=== PATIENT | female | born 1995 | race Caucasian/White ===

== ENCOUNTER → 2022-07-24 | Outpatient (CLI) | payer BC ==
--- NOTE | 2022-07-24 18:07 | Diagnostic Imaging Report ---
INDICATION: Supervision of normal . Anatomy scan. TECHNIQUE: Multiple real-time grayscale images were obtained over the gravid uterus. COMPARISON: None. FINDINGS: A single live intrauterine gestation is visualized in transverse position. heart tones measure 146 BPM. The placenta is anterior and somewhat low lying measuring 3.0 cm from the internal cervical os. The cervix is closed and measures 4.6 cm. The LEONARD is normal measuring 18.3 cm. The kidneys, bladder, stomach, brain, four-chamber heart, three-vessel cord, cord insertion, and spine are visualized and have a normal sonographic appearance. Views of the adnexa are unremarkable. Biometrical measurements are as follows: Biparietal 4.78 cm, age 20 weeks 4 days. Head circumference 17.41 cm, age 20 weeks 0 days. Abdominal circumference 16.40 cm, age 21 weeks 4 days. Femur length 2.98 cm, age 19 weeks 2 days. Sonographic estimate age: 20 weeks 3 days. Sonographic estimated date of delivery: 12/08/2022. Estimated Weight: 350 gm (+/- 51 gm). LMP percentile: 28%. heart rate: 146 beats per minute. number: 1 of 1. IMPRESSION: 1. Single live intrauterine gestation measuring 20 weeks 3 days with an estimated due date of 12/08/2022. These are within range with the clinical dates. 2. No sonographic abnormalities of the fetus. 3. Somewhat low-lying anterior placenta measuring 3.0 cm from the internal cervical os. Recommend continued attention on follow-up. Dictated by: Dictated on workstation # [id number]
== END ==
LOC: RAD 13:00
PROVIDERS: ATTEND Nurse Practitioner Women's Health
DX: Z34.02 Encounter for supervision of normal first pregnancy, second trimester (principal); Z3A.20 20 weeks gestation of pregnancy
CPT/HCPCS: 76805

== ENCOUNTER 2022-09-14 12:56 | Outpatient (CLI) | payer BC ==
[~2022-09-14] VITALS: Ht 170.2 cm; Wt 84.1 kg
[2022-09-14] MEDS ORDERED: HYDROCORTISONE 100 MG/2 ML (Solu-CORTEF) VIAL IV PRN (13:30)
[2022-09-14] MEDS ORDERED: RT-ALBUTEROL SULF 2.5 MG/3 ML PRE-MIX VIAL IH PRN (13:30)
[2022-09-14] MEDS ORDERED: IRON DEXTRAN 25 MG/NS 6.25 ML TOTAL VOLUME IV ONE ×3 (13:30)
[2022-09-14] MEDS ORDERED: diphenhydrAMINE 50 MG/ML INJ (BENADRYL) IV PRN (13:30)
[2022-09-14] MEDS ORDERED: EPINEPHrine INJECTION 1 MG/ML AMP IM PRN (13:30)
[2022-09-14] MEDS ORDERED: IRON DEXTRAN 1,000 MG/NS 250 ML IVPB IV ONE ×2 (13:45)
[2022-09-14 15:40] VITALS: BP 129/81
== END 2022-09-14 15:40 | disposition home or self-care (01) ==
LOC: SDC 12:56
PROVIDERS: ATTEND Obstetrics & Gynecology
DX: D64.9 Anemia, unspecified (principal)
CPT/HCPCS: 96365

== ENCOUNTER 2022-11-28 19:00 | Inpatient (IN) | payer BC ==
[~2022-11-28] VITALS: Ht 170.2 cm; Wt 90.9 kg
[2022-11-28 19:06] VITALS: BP 136/79
[2022-11-28] MEDS ORDERED: NS IV 1000 ML 1,000 ML ONE (19:29)
[2022-11-28] MEDS ORDERED: TERBUTALINE INJ 1 MG/ML (BRETHINE) AMP SC PRN (19:30)
[2022-11-28] MEDS ORDERED: LACTATED RINGERS 1,000 ML 500 ML IV PRN ×2 (19:30→20:45)
[2022-11-28] MEDS ORDERED: NS IV 1000 ML 1,000 ML IV SCH (19:30)
[2022-11-28] MEDS ORDERED: D5 LR 1,000 ML IV SOLN 1,000 ML IV ONE (20:37)
[2022-11-28 20:45] LABS: BASOPHILS % (AUTO) 0 % (0-10); EOSINOPHILS % (AUTO) 0 % (0-10); HEMATOCRIT 37 % (35-52); HEMOGLOBIN 12.2 g/dL (11.5-16.0); LYMPHOCYTES # (AUTO) 1.8 10^3/uL (1.0-4.0); LYMPHOCYTES % (AUTO) 14 % (12-44); MEAN CORPUSCULAR HEMOGLOBIN 29 pg (25-34); MEAN CORPUSCULAR HGB CONC 33 g/dL (32-36); MEAN CORPUSCULAR VOLUME 87 fL (80-99); MEAN PLATELET VOLUME 11.6 fL (9.0-12.2); MONOCYTES # (AUTO) 1.2 10^3/uL (0.0-1.0); MONOCYTES % (AUTO) 9 % (0-12); NEUTROPHILS # (AUTO) 10.1 10^3/uL (1.8-7.8); NEUTROPHILS % (AUTO) 77 % (42-75); PLATELET COUNT 234 10^3/uL (130-400); WHITE BLOOD COUNT 13.2 10^3/uL (4.3-11.0)
[2022-11-28] MEDS ORDERED: HYDROmorphone INJECTION 2 MG/ML VIAL IVP ONE (20:45)
[2022-11-28] MEDS: D5 LR 1,000 ML IV SOLN 1,000 ML IV SCH (20:51)
[2022-11-28 20:56] VITALS: BP 129/83
[2022-11-28 21:40] VITALS: BP 139/87
[2022-11-28 22:00] VITALS: BP 135/89
[2022-11-28] MEDS: CATHETER FLUSH 10 ML SYR IV SCH (22:00)
[2022-11-28 23:00] VITALS: BP 122/80
[2022-11-29] VITALS (59 sets, daily range): BP systolic 111–172; BP diastolic 65–100
[2022-11-29] MEDS ORDERED: BETAMETHASONE Acetate/Na Phosphate 6 MG/ML INJ ONE (01:36)
[2022-11-29] MEDS: D5 LR 1,000 ML IV SOLN 1,000 ML IV SCH ×2 (04:35→12:24)
[2022-11-29] MEDS: CATHETER FLUSH 10 ML SYR IV SCH ×3 (06:00→21:20)
--- NOTE | 2022-11-29 07:27 | History & Physical-OB/GYN ---
MAURO DUPREE 11/29/22 0727: History of Present Illness History of Present Illness Reason for visit/HPI induction of labor Date of Admission Nov 28, 2022 at 19:03 Time Seen by a Provider: 19:03 I consulted on this patient on 11/29/22 07:22 Attending Physician Admitting Physician: Yudith Dobson DO Admitting Physician Admitting Physician: Yudith Dobson DO Attending Physician: Yudith Dobson DO Consult Allergies and Home Medications Allergies Coded Allergies: No Known Drug Allergies (Unverified , 09/14/22) Patient Home Medication List No Active Prescriptions or Reported Meds Past Udjnpbv-Ffdans-Qzcypy Hx Patient Social History Smoking Status: Never a Smoker Alcohol Use?: No Pt feels they are or have been: No Reproductive System Expected Date of Delivery: Dec 06, 2022 Physical Exam Physical Exam Vital Signs Vital Signs Date Time Temp Pulse Resp B/P (MAP) Pulse Ox O2 Delivery O2 Flow Rate FiO2 11/29/22 06:00 75 18 127/80 (96) Room Air 11/29/22 05:00 76 18 138/93 (108) Room Air 11/29/22 04:00 36.0 73 18 130/82 (98) Room Air 11/29/22 03:00 75 18 133/82 (99) Room Air 11/29/22 02:00 36.0 72 18 132/80 (97) Room Air 11/29/22 01:00 85 18 146/95 (112) Room Air 11/29/22 00:00 78 18 130/79 (96) Room Air 11/28/22 23:00 83 18 122/80 (94) Room Air 11/28/22 22:00 36.0 87 18 135/89 (104) Room Air 11/28/22 21:40 87 18 139/87 (104) Room Air 11/28/22 20:56 92 18 129/83 (98) Room Air 11/28/22 19:06 37.0 99 18 136/79 (98) 97 Room Air 11/28/22 19:06 37.0 99 18 97 Room Air I & O 11/29/22 07:00 Intake Total 1500 ml Balance 1500 ml Capillary Refill : Less Than 3 Seconds Labs Laboratory Tests 11/28/22 19:35: White Blood Count 13.2H, Red Blood Count 4.18, Hemoglobin 12.2, Hematocrit 37, Mean Corpuscular Volume 87, Mean Corpuscular Hemoglobin 29, Mean Corpuscular Hemoglobin Concent 33, Red Cell Distribution Width 17.1H, Platelet Count 234, Mean Platelet Volume 11.6, Immature Granulocyte % (Auto) 1, Neutrophils (%) (Auto) 77H, Lymphocytes (%) (Auto) 14, Monocytes (%) (Auto) 9, Eosinophils (%) (Auto) 0, Basophils (%) (Auto) 0, Neutrophils # (Auto) 10.1H, Lymphocytes # (Auto) 1.8, Monocytes # (Auto) 1.2H, Eosinophils # (Auto) 0.0, Basophils # (Auto) 0.0, Immature Granulocyte # (Auto) 0.1, Syphilis Total Antibody Negative GERMÁN PALOMINO 11/29/22 0809: History of Present Illness History of Present Illness Reason for visit/HPI Induction of Labor Date of Admission 11/29/2022 Date Seen by a Provider: Nov 29, 2022 Time Seen by a Provider: 07:45 Attending Physician Yudith Dobson DO Admitting Physician Yudith Dobson DO Allergies and Home Medications Allergies Coded Allergies: No Known Drug Allergies (Unverified , 09/14/22) Patient Home Medication List Home Medication List Reviewed: Yes No Active Prescriptions or Reported Meds Past Umuriyi-Tfascy-Jmpojl Hx Reproductive System : Yes Physical Exam Physical Exam General Appearance: No Apparent Distress Respiratory: No Accessory Muscle Use, No Respiratory Distress Labia: WNL Cervix: Other (1/80/0) Cervix OS: open Uterus: Enlarged Ovaries: WNL Assessment/Plan Assessment and Plan Term , induce labor Problems: (1) 38 weeks gestation of (2) Elective induction of labor planned Admission Diagnosis Term , admit for induction of labor Admission Status: Inpatient Order (span 2 midnights) Reason for Inpatient Admission: Pt in labor, admit for and observation post- Diagnosis/Problems Diagnosis/Problems (1) 38 weeks gestation of (2) Elective induction of labor planned YUDITH DOBSON DO 11/29/222117: Assessment/Plan Admission Diagnosis Admission Status: Inpatient Order (span 2 midnights) Reason for Inpatient Admission: DOCUMENT IN ERROR MAURO DUPREE Nov 29, 2022 07:27 GERMÁN PALOMINO Nov 29, 2022 08:09 YUDITH DOBSON DO Nov 29, 2022 21:18
[2022-11-29] MEDS ORDERED: OXYTOCIN DRIP PRE-MIX 500 ML IV SCH (08:15)
[2022-11-29] MEDS ORDERED: fentaNYL 2 mcg/ml BUPIVA 0.125 100 ML ONE (08:18)
[2022-11-29] MEDS: fentaNYL 2 mcg/ml BUPIVA 0.125 100 ML EPI SCH ×2 (09:07→17:35)
[2022-11-29] MEDS ORDERED: NALOXONE 0.4 MG/ML 1 ML VIAL IV PRN ×3 (09:15→16:30)
[2022-11-29] MEDS ORDERED: METOCLOPRAMIDE INJ 10 MG/2 ML IV PRN (09:15)
[2022-11-29] MEDS ORDERED: LACTATED RINGERS 1,000 ML 1,000 ML IV SCH (09:15)
[2022-11-29] MEDS ORDERED: ONDANSETRON INJECTION 4 MG/2 ML (SDV) IV PRN (09:15)
[2022-11-29] MEDS ORDERED: diphenhydrAMINE INJ 50 MG/ML VIAL IV PRN (09:15)
[2022-11-29] MEDS ORDERED: LIDOCAINE 2% w/EPI 1:200,000 20 ML VIAL ONE (15:21)
[2022-11-29] MEDS: OXYTOCIN DRIP PRE-MIX 500 ML IV SCH ×2 (15:51→16:20)
[2022-11-29] MEDS ORDERED: METHYLERGONOVINE INJ 0.2 MG/ML AMP ONE (16:00)
[2022-11-29] MEDS ORDERED: NS (IVPB) 50 ML 50 ML ONE (16:15)
[2022-11-29] MEDS ORDERED: TRANEXAMIC ACID INJECTION 1,000 MG in NS (IVPB) 50 ML 50 ML IV ONE (16:17)
[2022-11-29] MEDS ORDERED: Tetanus/Diphtheria/Pertussis (Acell) ADULT Vaccine 0.5 ML IM ONE (16:30)
[2022-11-29] MEDS ORDERED: HYDROcodone/ACETAMINOPHEN 5 MG/325 MG TABLET PO PRN (16:30)
[2022-11-29] MEDS ORDERED: MEASLES, MUMPS, RUBELLA VACCINE (MMR) SQ ONE (16:30)
[2022-11-29] MEDS ORDERED: BENZOCAINE/MENTHOL (DERMOPLAST) 56 ML CAN TP PRN (16:30)
[2022-11-29] MEDS ORDERED: DIBUCAINE 1% OINTMENT 28 GM TUBE TOP PRN (16:30)
--- NOTE | 2022-11-29 16:31 | OB Labor & Delivery Record ---
L&D History Date of Service Date of Service: Nov 29, 2022 History Expected Date of Delivery: Dec 06, 2022 Gestational Age in Weeks: 39 Hx : 1 Hx Para: 0 Complications Events: Routine care Operative Indications (Cesarea: N/A-Vaginal Delivery Intrapartal Events: None L&D Stage1 Stage One Onset of Labor - Date: Nov 29, 2022 Monitors and Tracing Monitor Mode: External Heart Rate: 130 Monitor Accelerations: Uniform Monitor Decelerations: None Station: 0 Cage Cashier Variability: Average (6-10) Short Term Variability: Present Presentation: Vertex Vital Signs VS - Last 72 Hours, by Label 11/28/22 11/28/22 11/28/22 11/28/22 19:06 19:06 20:56 21:40 Temp 37.0 37.0 Pulse 99 99 92 87 Resp 18 18 18 18 B/P (MAP) 136/79 (98) 129/83 (98) 139/87 (104) Pulse Ox 97 97 O2 Delivery Room Air Room Air Room Air Room Air 11/28/22 11/28/22 11/29/22 11/29/22 22:00 23:00 00:00 01:00 Temp 36.0 Pulse 87 83 78 85 Resp 18 18 18 18 B/P (MAP) 135/89 (104) 122/80 (94) 130/79 (96) 146/95 (112) O2 Delivery Room Air Room Air Room Air Room Air 11/29/22 11/29/22 11/29/22 11/29/22 02:00 03:00 04:00 05:00 Temp 36.0 36.0 Pulse 72 75 73 76 Resp 18 18 18 18 B/P (MAP) 132/80 (97) 133/82 (99) 130/82 (98) 138/93 (108) O2 Delivery Room Air Room Air Room Air Room Air 11/29/22 11/29/22 11/29/22 11/29/22 06:00 07:00 07:30 08:00 Temp 35.1 35.4 Pulse 75 85 83 94 Resp 18 18 18 18 B/P (MAP) 127/80 (96) 143/91 (108) 148/88 (108) 143/96 (112) Pulse Ox 100 O2 Delivery Room Air Room Air Room Air Room Air 11/29/22 11/29/22 11/29/22 11/29/22 08:30 08:45 08:50 08:55 Pulse 77 87 89 88 Resp 18 18 18 18 B/P (MAP) 143/83 (103) 166/92 (116) 141/92 (108) 146/92 (110) Pulse Ox 100 98 100 O2 Delivery Room Air Room Air Room Air Room Air 11/29/22 11/29/22 11/29/22 11/29/22 09:00 09:05 09:10 09:15 Pulse 85 86 91 88 Resp 18 18 18 18 B/P (MAP) 139/93 (108) 133/85 (101) 134/80 (98) 128/79 (95) Pulse Ox 100 99 100 99 O2 Delivery Room Air Room Air Room Air Room Air 11/29/22 11/29/22 11/29/22 11/29/22 09:20 09:25 09:30 10:00 Temp 36.3 Pulse 93 80 89 88 Resp 18 18 18 18 B/P (MAP) 132/81 (98) 133/79 (97) 128/80 (96) 141/91 (108) Pulse Ox 99 100 100 O2 Delivery Room Air Room Air Room Air Room Air 11/29/22 11/29/22 11/29/22 11/29/22 10:15 10:30 10:45 11:00 Pulse 88 82 75 66 Resp 18 18 18 18 B/P (MAP) 111/72 (85) 117/71 (86) 133/89 (104) 124/77 (93) O2 Delivery Room Air Room Air Room Air Room Air 11/29/22 11/29/22 11/29/22 11/29/22 11:15 11:30 11:45 12:00 Temp 36.2 Pulse 75 65 74 76 Resp 18 18 18 18 B/P (MAP) 124/78 (93) 129/83 (98) 129/82 (98) 148/69 (95) O2 Delivery Room Air Room Air Room Air Room Air 11/29/22 11/29/22 11/29/22 11/29/22 12:15 12:30 12:45 13:00 Pulse 76 71 63 68 Resp 18 18 18 18 B/P (MAP) 136/81 (99) 116/66 (83) 136/80 (98) 132/78 (96) O2 Delivery Room Air Room Air Room Air Room Air 11/29/22 11/29/22 11/29/22 11/29/22 13:15 13:30 13:45 14:00 Pulse 75 100 75 83 Resp 18 18 18 18 B/P (MAP) 133/80 (97) 133/81 (98) 130/79 (96) 132/79 (96) O2 Delivery Room Air Room Air Room Air Room Air 11/29/22 14:15 Pulse 93 Resp 18 B/P (MAP) 156/92 (113) O2 Delivery Room Air Rupture of Membranes Spontaneous Ruture of Membrane: No Amniotic Membrane Rupture Time: 07 Amniotic Membrane Fluid Desc.: Clear Vaginal Bleeding Description: Normal Show Induction/Anesthesia Epidural Cath Placement - Time: 08 Progress/Notes AROM performed this AM after cytotec PO given overnight. Pitocin augmentation started this am, she progressed to complete and + 2 [address] epid[address] in place. L&D Stage2 Monitors and Tracing Monitor Mode: External Heart Rate: 130 Mcfp Variability: Average (6-10) Short Term Variability: Present Position: Right Occiput Anterior Presentation: Vertex Cord Descript/Complications Cord Vessel Description: 3 Vessels Episiotomy/Perineal Laceration Laceraction(s)/Extensions: Yes Episiotomy Description: Periurethral Extnsion/lac, Perineal Extension/lac Degree (describe repair) lacerations repaired using 3-0 rapide in usual fashion Condition of Infant Delivery 1 minute Comment: 8 5 minute Comment: 9 Notes Live female infant weight pending. Condition of Condition of : Living Exam: No Observed Abnormalities Resuscitation Resuscitation: N/A - Spontaneous Resp L&D Stage3 Stage Three Stage III Date: Nov 29, 2022 Pictocin Pitocin Administration mu/min: 12 Pitocin ml/hr: 12 Pitocin Administration Comment: Pitocin increased 30 mu wide open after delivery of placenta Placenta Delivery Placenta Delivery: Spontaneous Delivery Summary Summary Estimated blood loss (mL): 800 Attending at delivery: Yudith Dobson DO Condition of Delivery Examined: Cervix Examined, Uterus Explored Post Hemorrhage: Yes Intervention Required Cytotec MO 800 mcg, Methergine 0.2 mg IM, and 1000mcg TXA given IV. Condition of Mother stable Condition of Infant (s) stable YUDITH DOBSON DO Nov 29, 2022 16:31
--- NOTE | 2022-11-29 16:33 | History & Physical-OB ---
OB - Chief Complaint & HPI Date/Time Date of Admission: Date of Admission: Nov 28, 2022 at 19:03 Date seen by a Provider: Nov 29, 2022 Time Seen by a Provider: 07:48 Chief Complaint/History OB-Reason for Admission/Chief: Induction of Labor Hx : 1 Hx Para: 0 Expected Date of Delivery: Dec 06, 2022 Gestational Age in Weeks: 39 Gestational Age in Days: 6 Admission Nurse Assessment Rev: Yes Allergies and Home Medications Allergies Coded Allergies: No Known Drug Allergies (Unverified , 09/14/22) Patient Home Medication List Home Medication List Reviewed: Yes OB - History Hx of Present Care: Yes Ultrasounds: Normal mid trimester US Obstetrical Complications: None Medical Complications: None Obstetrical History Hx : 1 Hx Para: 0 Patient Past Medical History nc OB - Admission Exam Physical Exam Vitals: Vital Signs 11/29/22 11/29/22 11/29/22 09:30 12:00 14:15 Temp 36.2 Pulse 93 Resp 18 B/P (MAP) 156/92 (113) Pulse Ox 100 O2 Delivery Room Air HEENT: NCAT Heart: Rhythm Normal Lungs: Clear Abdomen: Gravid Extremities: Normal Reflexes: Normal Cervical Dilatation: 2cm Effacement: 75% Station: -1 Membranes: Intact Heart Rate: 130's Accelerations: Accelerations Present Decelerations: No Decelerations Short Term Variability: Present Residential Variability: Average (6-25) Contractions on Admission: 6-10 Minutes Apart Intensity: Mild Soares Scoring Tool (Modified) Dilation (cm): 1-2cm (1) Effacement (%): 51-79% (2) Descent/Station: -1,0 (2) Cervix Consistency: Soft (2) Cervix Position: Anterior (2) Subtract 1 point for: Nulliparity (-1) Soares Score: 8 Labs Laboratory Tests Test 11/28/22 19:35 Range/Units White Blood Count 13.2 H 4.3-11.0 10^3/uL Red Blood Count 4.18 3.80-5.11 10^6/uL Hemoglobin 12.2 11.5-16.0 g/dL Hematocrit 37 35-52 % Mean Corpuscular Volume 87 80-99 fL Mean Corpuscular Hemoglobin 29 25-34 pg Mean Corpuscular Hemoglobin Concent 33 32-36 g/dL Red Cell Distribution Width 17.1 H 10.0-14.5 % Platelet Count 234 130-400 10^3/uL Mean Platelet Volume 11.6 9.0-12.2 fL Immature Granulocyte % (Auto) 1 % Neutrophils (%) (Auto) 77 H 42-75 % Lymphocytes (%) (Auto) 14 12-44 % Monocytes (%) (Auto) 9 0-12 % Eosinophils (%) (Auto) 0 0-10 % Basophils (%) (Auto) 0 0-10 % Neutrophils # (Auto) 10.1 H 1.8-7.8 10^3/uL Lymphocytes # (Auto) 1.8 1.0-4.0 10^3/uL Monocytes # (Auto) 1.2 H 0.0-1.0 10^3/uL Eosinophils # (Auto) 0.0 0.0-0.3 10^3/uL Basophils # (Auto) 0.0 0.0-0.1 10^3/uL Immature Granulocyte # (Auto) 0.1 0.0-0.1 10^3/uL Syphilis Total Antibody Negative Negative OB - Assessment/Plan/Diagnosis Assessment Assessment: induction of labor Admission Dx 27 yo @ 39 weeks Elective IOL GBS neg Admission Status: Inpatient Order (span 2 midnights) Reason for Inpatient Admission: IOL at 39 weeks Plan Plan: Induction YUDITH DOBSON DO Nov 29, 2022 16:33
[2022-11-29] MEDS: IBUPROFEN 600 MG TABLET PO SCH (19:36)
[2022-11-29] MEDS ORDERED: TRANEXAMIC ACID 100 MG/ML 10 ML INJECTION IV ONE (19:42)
[2022-11-29] MEDS: DOCUSATE SODIUM 100 MG CAPSULE PO SCH (21:05)
[2022-11-29] MEDS: WITCH HAZEL(TUCKS) 40 EA JAR TOP PRN (21:06)
[2022-11-29] MEDS ORDERED: CATHETER FLUSH 10 ML SYR IV SCH (22:00)
[2022-11-30 01:30] VITALS: BP 123/78
[2022-11-30] MEDS: IBUPROFEN 600 MG TABLET PO SCH ×4 (01:30→21:13)
[2022-11-30 04:30] VITALS: BP 123/81
[2022-11-30] MEDS ORDERED: ACETAMINOPHEN 500 MG TABLET ONE (04:43)
[2022-11-30] MEDS ORDERED: ACETAMINOPHEN 500 MG TABLET PO PRN ×2 (04:45→05:00)
[2022-11-30 05:43] LABS: BASOPHILS % (AUTO) 0 % (0-10); EOSINOPHILS # (AUTO) 0.1 10^3/uL (0.0-0.3); EOSINOPHILS % (AUTO) 0 % (0-10); HEMATOCRIT 31 % (35-52); HEMOGLOBIN 10.2 g/dL (11.5-16.0); LYMPHOCYTES # (AUTO) 2.4 10^3/uL (1.0-4.0); LYMPHOCYTES % (AUTO) 12 % (12-44); MEAN CORPUSCULAR HEMOGLOBIN 29 pg (25-34); MEAN CORPUSCULAR HGB CONC 33 g/dL (32-36); MEAN CORPUSCULAR VOLUME 88 fL (80-99); MEAN PLATELET VOLUME 11.3 fL (9.0-12.2); MONOCYTES % (AUTO) 10 % (0-12); NEUTROPHILS # (AUTO) 16.3 10^3/uL (1.8-7.8); NEUTROPHILS % (AUTO) 78 % (42-75); PLATELET COUNT 182 10^3/uL (130-400); WHITE BLOOD COUNT 20.9 10^3/uL (4.3-11.0)
[2022-11-30] MEDS ORDERED: RHO(D) IMMUNE GLOBULIN 300 MCG/2 ML SYRINGE IM/IV ONE (07:45)
--- NOTE | 2022-11-30 08:50 | Postpartum Progress Note ---
Note Note Day # 1 Subjective: Patient is without complaints. Ambulating, voiding. Tolerating a regular diet without nausea or vomiting. Normal lochia. Pain is well controlled with oral pain medications. . [] Objective: Vital signs stable afebrile Physical Exam: General - Alert and oriented, no apparent distress Breast symmetrical no erythema or edema or engorgement Abdomen - Soft, appropriately tender to palpation, non-distended, fundus firm at umbilicus Lochia minimal Extremities - no edema, negative Adele's bilaterally Assessment: [] post- day # 1, status post Spontaneous vaginal delivery. Recovering well, hemodynamically stable Plan: Routine care. Encourage breast feeding. Encourage ambulation. Ferrous sulfate supplementation. Plan for discharge [] Vitals - Labs Vital Signs - I&O Vital Signs Date Time Temp Pulse Resp B/P (MAP) Pulse Ox O2 Delivery O2 Flow Rate FiO2 11/30/22 04:30 36.6 93 18 123/81 (95) 99 Room Air 11/30/22 01:30 36.8 98 18 123/78 (93) 98 Room Air 11/29/22 20:35 36.2 109 18 131/86 (101) Room Air 11/29/22 20:05 105 18 150/89 (109) Room Air 11/29/22 19:35 106 18 143/100 (114) Room Air 11/29/22 19:05 37.1 100 18 131/84 (100) Room Air 11/29/22 18:35 103 18 134/83 (100) Room Air 11/29/22 18:15 98 18 145/65 (91) Room Air 11/29/22 18:00 104 18 142/80 (100) Room Air 11/29/22 17:45 105 18 140/85 (103) Room Air 11/29/22 17:30 110 18 144/89 (107) Room Air 11/29/22 17:15 111 18 158/90 (112) Room Air 11/29/22 17:00 113 18 153/89 (110) Room Air 11/29/22 16:45 111 18 136/68 (90) Room Air 11/29/22 16:30 36.2 131 18 161/86 (111) Room Air 11/29/22 16:00 103 18 147/72 (97) Room Air 11/29/22 15:45 115 18 172/95 (120) Room Air 11/29/22 15:30 100 18 134/75 (94) Room Air 11/29/22 15:15 83 18 135/86 (102) Room Air 11/29/22 15:00 79 18 134/86 (102) Room Air 11/29/22 14:45 36.0 77 18 139/86 (103) Room Air 11/29/22 14:30 79 18 129/84 (99) Room Air 11/29/22 14:15 93 18 156/92 (113) Room Air 11/29/22 14:00 83 18 132/79 (96) Room Air 11/29/22 13:45 75 18 130/79 (96) Room Air 11/29/22 13:30 100 18 133/81 (98) Room Air 11/29/22 13:15 75 18 133/80 (97) Room Air 11/29/22 13:00 68 18 132/78 (96) Room Air 11/29/22 12:45 63 18 136/80 (98) Room Air 11/29/22 12:30 71 18 116/66 (83) Room Air 11/29/22 12:15 76 18 136/81 (99) Room Air 11/29/22 12:00 36.2 76 18 148/69 (95) Room Air 11/29/22 11:45 74 18 129/82 (98) Room Air 11/29/22 11:30 65 18 129/83 (98) Room Air 11/29/22 11:15 75 18 124/78 (93) Room Air 11/29/22 11:00 66 18 124/77 (93) Room Air 11/29/22 10:45 75 18 133/89 (104) Room Air 11/29/22 10:30 82 18 117/71 (86) Room Air 11/29/22 10:15 88 18 111/72 (85) Room Air 11/29/22 10:00 36.3 88 18 141/91 (108) Room Air 11/29/22 09:30 89 18 128/80 (96) 100 Room Air 11/29/22 09:25 80 18 133/79 (97) 100 Room Air 11/29/22 09:20 93 18 132/81 (98) 99 Room Air 11/29/22 09:15 88 18 128/79 (95) 99 Room Air 11/29/22 09:10 91 18 134/80 (98) 100 Room Air 11/29/22 09:05 86 18 133/85 (101) 99 Room Air 11/29/22 09:00 85 18 139/93 (108) 100 Room Air 11/29/22 08:55 88 18 146/92 (110) 100 Room Air 11/29/22 08:50 89 18 141/92 (108) 98 Room Air I & O 11/30/22 07:00 Intake Total 1560 ml Output Total 2000 ml Balance -440 ml Labs Laboratory Tests 11/30/22 05:13: White Blood Count 20.9H, Red Blood Count 3.47L, Hemoglobin 10.2L, Hematocrit 31L , Mean Corpuscular Volume 88, Mean Corpuscular Hemoglobin 29, Mean Corpuscular H emoglobin Concent 33, Red Cell Distribution Width 16.9H, Platelet Count 182, Mean Platelet Volume 11.3, Immature Granulocyte % (Auto) 1, Neutrophils (%) (Auto) 78H, Lymphocytes (%) (Auto) 12, Monocytes (%) (Auto) 10, Eosinophils (%) (Auto) 0, Basophils (%) (Auto) 0, Neutrophils # (Auto) 16.3H, Lymphocytes # (Auto) 2.4, Monocytes # (Auto) 2.0H, Eosinophils # (Auto) 0.1, Basophils # (Auto) 0.0, Immature Granulocyte # (Auto) 0.1 TRISTAN MACKENZIE DO Nov 30, 2022 08:50
[2022-11-30] MEDS: DOCUSATE SODIUM 100 MG CAPSULE PO SCH ×2 (09:51→21:13)
[2022-11-30] MEDS: PRENATAL VITAMIN TABLET PO SCH (09:51)
[2022-11-30] MEDS: FERROUS SULFATE 325 MG (IRON) TABLET PO SCH (09:51)
[2022-11-30 09:54] VITALS: BP 125/71
--- NOTE | 2022-11-30 10:26 | Anesthesia-Regional Post-Op ---
Regional Patient Condition Mental Status: Alert, Oriented x3 Circulation: Same as Pre-Op Headache: Absent Sensation: Full Recovery Motor Block: Absent Post Op Complications Complications None Follow Up Care/Instructions Patient Instructions None needed. Anesthesia/Patient Condition Patient is doing well, no complaints, stable vital signs, no apparent adverse anesthesia problems. No complications reported per nursing. [place] [facility] Yes SHYLA DORSEY CRNA Nov 30, 2022 10:26
[2022-11-30 15:00] VITALS: BP 131/88
[2022-11-30 21:15] VITALS: BP 130/78
[2022-11-30] MEDS: WITCH HAZEL(TUCKS) 40 EA JAR TOP PRN (21:15)
[2022-12-01] MEDS: IBUPROFEN 600 MG TABLET PO SCH ×3 (03:07→15:56)
[2022-12-01 03:12] VITALS: BP 107/66
--- NOTE | 2022-12-01 06:46 | Postpartum Progress Note ---
Note Note Day # 2 Subjective: Patient is without complaints. Ambulating, voiding. Tolerating a regular diet without nausea or vomiting. Normal lochia. Pain is well controlled with oral pain medications. Breast-feeding. [] Objective: VSS AF Physical Exam: General - Alert and oriented, no apparent distress Breast symmetrical no erythema or edema or engorgement Abdomen - Soft, appropriately tender to palpation, non-distended, fundus firm at umbilicus Lochia minimal Extremities - no edema, negative Adele's bilaterally Assessment: [] post- day #2, status post vaginal delivery. Recovering well, hemodynamically stable Plan: Routine care. Encourage breast feeding. Encourage ambulation. Ferrous sulfate supplementation. Plan for discharge Today Vitals - Labs Vital Signs - I&O Vital Signs Date Time Temp Pulse Resp B/P (MAP) Pulse Ox O2 Delivery O2 Flow Rate FiO2 12/01/22 03:12 36.1 106 18 107/66 (80) 99 Room Air 11/30/22 21:15 36.4 108 18 130/78 (95) 97 Room Air 11/30/22 15:00 36.6 98 18 131/88 (102) 99 Room Air 11/30/22 09:54 36.7 100 18 125/71 (89) 98 Room Air TRISTAN MACKENZIE DO Dec 01, 2022 06:46
[2022-12-01 09:50] VITALS: BP 124/76
[2022-12-01] MEDS: DOCUSATE SODIUM 100 MG CAPSULE PO SCH (09:50)
[2022-12-01] MEDS: PRENATAL VITAMIN TABLET PO SCH (09:50)
[2022-12-01] MEDS: FERROUS SULFATE 325 MG (IRON) TABLET PO SCH (09:50)
[2022-12-01 15:56] VITALS: BP 137/86
== END 2022-12-01 17:15 | disposition home or self-care (01) | DRG 806 ==
LOC: LDRP 19:03
PROVIDERS: ADMIT Obstetrics & Gynecology; ATTEND Obstetrics & Gynecology
PROC: 3E0DXGC Introduction of Other Therapeutic Substance into Mouth and Pharynx, External Approach (ICD-10-PCS; 2022-11-28)
PROC: 10E0XZZ Delivery of Products of Conception, External Approach (ICD-10-PCS; principal; 2022-11-29)
PROC: 0HQ9XZZ Repair Perineum Skin, External Approach (ICD-10-PCS; 2022-11-29)
PROC: 0UQMXZZ Repair Vulva, External Approach (ICD-10-PCS; 2022-11-29)
PROC: 10907ZC Drainage of Amniotic Fluid, Therapeutic from Products of Conception, Via Natural or Artificial Opening (ICD-10-PCS; 2022-11-29)
DX: O98.32 Other infections with a predominantly sexual mode of transmission complicating childbirth (principal); O72.1 Other immediate postpartum hemorrhage; Z37.0 Single live birth; O71.82 Other specified trauma to perineum and vulva; O70.9 Perineal laceration during delivery, unspecified; Z3A.39 39 weeks gestation of pregnancy; A60.09 Herpesviral infection of other urogenital tract
CPT/HCPCS: 36415; 83033; 85025; 86780; 86850; 86900; 86901